=== PATIENT | female | born 1940 | race Caucasian/White ===

== ENCOUNTER → 2017-06-19 | Day surgery (SDC) | payer MEDICARE, OTHER ==
[~2017-06-19] MED LIST: BUPIVACAINE HCL PF 0.5% 10 ML VIAL ONE; LACTATED RINGER'S 1000 ML INJ 1,000 ML ONE; MIDAZOLAM HCL 2 MG/2 ML VIAL ONE; PROPOFOL 200 MG/20 ML AMP IV ONE; ceFAZolin 2 GM PREMIX 50 ML ONE; oxyCODONE/ACETAMINOPHEN 5 MG/325 MG TAB ONE
--- NOTE | 2017-07-03 12:25 | TN ---
cc: LATRELL OROZCO DPM DATE OF SURGERY: 06/19/2017 DATE OF : 1940 INDICATION The patient presented to my clinic complaining of a lesion to the plantar aspect of the right heel. She stated that she thought she had stepped on a foreign body in the past few months and she felt like there was a lump there in the area. It continued to get bigger and bigger and she felt it with every step and had pain. She had an MRI that was negative for any findings but there was clearly a palpable nodule in the area in the subcutaneous tissue that she wanted to move forward with excision of lesion right heel. I discussed with the patient risks, benefits, potential complications of surgery. She agreed to move forward. She was seen in preop holding by myself, nursing staff and Anesthesia where the correct patient, side and site were all confirmed to be correct in the right heel. PROCEDURE She was then taken back to the surgical suite in supine position. The right foot was prepped and draped in normal sterile fashion. Following time-outs as per facility protocol, attention was directed to the plantar aspect of the heel where a linear incision was made over the palpable lesion area which felt approximately 0.5 cm diameter. Following this there was noted to be a white hard lesion that was clearly visible. It was excised in its entirety and sent to pathology as specimen. The area was copiously irrigated. Culture was taken also of the right heel prior to closure followed by closure with 2-0 Nylon suture followed by dressing consisting of Xeroform, 4x4s, cast padding and Magdy bandage to the right foot. She tolerated the procedure and anesthesia well and was taken back to PACU with vital signs stable and vascular status intact to the remainder of the right foot. She will be non-weightbearing to the right heel and will follow up in clinic in 1 week for dressing change. SURGEON Latrell Orozco DPM [employer]. PREOPERATIVE DIAGNOSIS Soft tissue mass right heel. POSTOPERATIVE DIAGNOSIS Soft tissue mass right heel. PROCEDURE Excision of lesion right heel. SPECIMEN 1. Right heel soft tissue mass. 2. Culture right heel. ESTIMATED BLOOD LOSS Minimal. ANESTHESIA General endotracheal anesthesia plus local as per nursing notes. DISPOSITION Non-weightbearing right lower extremity. Follow up in 1 week for dressing change. COMPLICATIONS None. Latrell Orozco HM/TLL /9:58 AM /12:06 PM
== END | disposition home or self-care (01) ==
LOC: ESDC 06:25
PROVIDERS: ATTEND Podiatrist Foot & Ankle Surgery
DX: L72.0 Epidermal cyst (principal)
CPT/HCPCS: 00400; 28043; 88304; J0690; J2250; J7120; 88305